=== PATIENT | female | born 1980 | race Caucasian/White ===

== ENCOUNTER 2016-10-03 05:31 | Emergency (ER) | payer BC ==
[~2016-10-03] VITALS: Ht 165.1 cm; Wt 103.6 kg
[2016-10-03 05:48] LABS: MCH 30.7 PG (29.0-34.0); MCHC 34.9 G/DL (30.0-36.0); MCV 88.1 FL (83-99); PLATELET COUNT 295 K/uL (156-360); RBC DIS.WIDTH-CV 11.9 % (11.8-14.6); RBC DIS.WIDTH-SD 38.5 % (39-53); RED BLOOD COUNT 5.11 M/uL (3.80-5.20); WHITE BLOOD COUNT 13.8 K/uL (4.1-10.2)
[2016-10-03 06:11] LABS: CHLORIDE 107 mEq/L (99-109); POTASSIUM 4.2 mEq/L (3.7-5.4); SODIUM 139 mEq/L (136-147)
[2016-10-03 06:13] LABS: GLUCOSE 116 mg/dL (70-99)
[2016-10-03 06:14] LABS: ANION GAP 9 MEQ/L (2-14)
[2016-10-03 06:15] LABS: TOTAL BILIRUBIN 0.9 mg/dL (0.0-1.0)
[2016-10-03 06:16] LABS: ALKALINE PHOSPHATASE 131 IU/L (3-129)
[2016-10-03 06:17] LABS: GFR ESTIMATE (CALCULATED) > 59 mL/min/
[2016-10-03 06:18] LABS: UREA NITROGEN (BUN) 10 mg/dL (9-23)
[2016-10-03 06:25] LABS: QUANTITATIVE HCG < 4.0 MIU/ML
[2016-10-03 06:38] LABS: LIPASE 44 U/L (1.0-51.0)
[2016-10-03 08:38] LABS: ADD MIUA? NO; BILIRUBIN NEGATIVE; BLOOD NEGATIVE; COLOR YELLOW ((YELLOW)); GLUCOSE (STRIP) NEGATIVE; KETONES NEGATIVE; LEUKOCYTES NEGATIVE; NITRITE NEGATIVE; PROTEIN (STRIP) NEGATIVE; SPECIFIC GRAVITY 1.014 (1.000-1.030); UCUL ADDED? NO; UROBILINOGEN 0.2 MG/DL (0.2-1.0)
[2016-10-03] MEDS ORDERED: FLAGYL500 MG PO (09:02)
[2016-10-03] MEDS ORDERED: CIPRO500 MG PO (09:02)
[2016-10-03 09:28] VITALS: BP 123/91
== END 2016-10-03 09:31 | disposition home or self-care (01) ==
LOC: EME 05:31
DX: K52.9 Noninfective gastroenteritis and colitis, unspecified (principal); K63.89 Other specified diseases of intestine; I10 Essential (primary) hypertension; Z87.891 Personal history of nicotine dependence
CPT/HCPCS: 74176; 80053; 81003; 83690; 84702; 85027; 99281; 99285; J1885; J2270; J2405; J7030